=== PATIENT | male | born 1935 | race Caucasian/White ===

== ENCOUNTER → 2016-08-16 | Outpatient (CLI) | payer OTHER | LOC: BRMIMAGING 11:34 | PROVIDERS: ATTEND Physician Assistant | DX: J40 Bronchitis, not specified as acute or chronic (principal); I70.0 Atherosclerosis of aorta | CPT/HCPCS: 71020-PO ==

== ENCOUNTER → 2016-12-16 | Outpatient (CLI) | payer OTHER | LOC: BRMIMAGING 15:50 | PROVIDERS: ATTEND Family Medicine | DX: J40 Bronchitis, not specified as acute or chronic (principal); I51.7 Cardiomegaly; R91.8 Other nonspecific abnormal finding of lung field | CPT/HCPCS: 71020-PO ==